=== PATIENT | male | born 1985 | race Caucasian/White ===

== ENCOUNTER 2020-02-08 15:22 | Emergency (ER) | payer MEDICAID, SELFPAY ==
[2020-02-08 15:28] VITALS: BP 153/95; PULSE 62; RESP 19; TEMP 36.6; O2SAT 100; BMI 28.0
--- NOTE | 2020-02-08 15:34 | XR_ITS ---
WS: [id number] LEFT ANKLE: 3 VIEW(S) TECHNIQUE: AP, oblique(s) and lateral. HISTORY: trauma; get distal tib/fib please COMPARISON: None available. Normal anatomic alignment with no fracture or dislocation. Large joint effusion. Most significant distention of the anterior recess. No significant degenerative changes at the joint spaces. No soft tissue abnormality. XR/XR ankle LT min 3V* [id number] IMPRESSION: 1. Large joint effusion. No fracture identified.
--- NOTE | 2020-02-08 16:50 | W.ED.EXTPRO ---
HPI - Extremity Problem General: Chief complaint: Extremity Injury, Lower Stated complaint: left leg pain Time Seen by Provider: 02/08/20 16:48 History of Present Illness: HPI Narrative: Stiven is a very nice 34-year-old male who comes in with an ankle injury. He states he injured it while working outside. He denies any numbness or weakness of his foot. He denies any other injuries. 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 History of recent travel: No Physical Exam Const: COMMON NORMALS: no apparent distress, oriented x3, no limitations, healthy appearing and well nourished EXAM LIMITATIONS: no altered mental status GENERAL APPEARANCE: cooperative, well kempt and well developed ORIENTATION/CONSCIOUSNESS: Yes awake HENMT: COMMON NORMALS: normocephalic, head/scalp atraumatic, hearing grossly normal bilaterally, external ears normal, EAC's normal, external nose normal and moist oral mucous membranes HEAD & SCALP: normal to inspection, normocephalic and atraumatic FACE & SINUS: normal facial exam and face symmetric NOSE: external nose normal and nares normal EXTERNAL EAR: Yes external ears normal EXTERNAL AUDITORY CANAL: EAC's normal MOUTH: oral and palatal mucosa normal and tongue normal Eye: COMMON NORMALS: PERRL, EOMs intact bilaterally, conjunctivae normal and no scleral icterus GENERAL EYE: normal appearance of both eyes and normal light reflex CONJUNCTIVA: Yes conjunctivae normal SCLERA: sclerae normal CORNEA: Yes corneas normal PUPIL: Yes PERRL DIRECT OPHTHALMOSCOPY: Yes normal light reflex Neck/C-Spine: COMMON NORMALS: full ROM, no lymphadenopathy, supple, no meningeal signs and no JVD GENERAL: Yes normal visual inspection and Yes trachea midline CERVICAL SPINE: Yes cervical ROM normal Chest: COMMONS NORMALS: inspection of chest normal and palpation of chest normal Resp: COMMON NORMALS: normal respiratory effort, no retractions, no use of accessory muscles and clear to auscultation bilaterally EFFORT & INSPECTION: Yes able to speak in complete sentences AUSCULTATION: clear to auscultation bilaterally Cardio: COMMON NORMALS: no JVD, regular rate, regular rhythm, S1 normal heart sound, S2 normal heart sound, no gallops, no clicks, no murmurs and no rub JUGULAR VENOUS DISTENTION: no JVD RATE: regular rate RHYTHM: regular rhythm HEART SOUNDS: S1 normal and S2 normal GI: COMMON NORMALS: soft to palpation, non-tender, no hepatosplenomegaly and no masses INSPECTION: Yes normal to inspection PALPATION: Yes soft and Yes no hepatosplenomegaly : COMMON NORMALS: Yes no CVA tenderness BLADDER/KIDNEY EXAM: Yes no CVA tenderness Back/Pelvis: COMMON NORMALS: no CVA tenderness, thoracic and lumbar spine normal to inspection, no thoracic nor lumbar tenderness and thoraco-lumbar ROM normal Extremity: COMMON NORMALS: normal capillary refill, no joint enlargement, no clubbing, cyanosis or edema and no calf tenderness OTHER: Left ankle with mild tenderness to palpation over the medial and lateral malleolus. Neurovascular intact distal. Minimal swelling. No ecchymosis. Neuro: COMMON NORMALS: oriented x3, CN's II-XII intact bilaterally, moves all extremities, no focal motor deficits and no sensory deficits noted MENINGEAL SIGNS: Yes no meningeal signs Psych: COMMON NORMALS: mental status grossly normal, thought process normal, cooperative, affect normal, speech normal and activity/motor behavior normal APPEARANCE: Yes well kempt SPEECH: Yes normal speech THOUGHT PROCESS: normal thought process Skin: COMMON NORMALS: no rashes or lesions noted, skin turgor normal, no jaundice, no petechiae and no mottling GENERAL SKIN EXAM: no rashes or lesions noted and turgor normal Course Vital Signs: Vital signs: Vital Signs Temperature 97.8 F 02/08/20 15:28 Pulse Rate 62 02/08/20 15:28 Respiratory Rate 19 H 02/08/20 15:28 Blood Pressure 153/95 02/08/20 15:28 Pulse Oximetry 100 02/08/20 15:28 MDM - Extremity (Nontraumatic) MDM Narrative: Medical decision making narrative: Patient's x-ray reveals no evidence of fracture although there is a joint effusion. I will place him in a splint and have him use crutches as needed. He agrees to follow-up with the orthopedic doctor if his pain persists. Imaging Data^: Xray Ortho: My impression: Right ankle -no acute fracture. Joint effusion noted. Discharge Plan Discharge Patient Disposition: Home, Self-Care Clinical Impression: Ankle sprain Qualifiers: Encounter type: initial encounter Involved ligament of ankle: unspecified ligament Laterality: right Qualified Code(s): S93.401A - Sprain of unspecified ligament of right ankle, initial encounter Condition: Stable Prescriptions: No Action diazepam [Valium] 10 mg tablet 10 mg PO ONCE Qty: 1 RF: 0 colchicine 0.6 mg capsule 0.6 mg PO DAILY RF: 0 Discharge Orders: Discharge Order (Routine); Ordered 02/08/20 Ordered By: Libby Mabry Referrals: Harley Huntley MD [Physician] - 1-3 days Osbaldo Smith MD [Primary Care Provider] - Discharge Diet: Advance as tolerated Discharge Activity: Use walker/crutches as instructed Patient Instructions: Ankle Sprain (ED) Activity Restrictions/Additional Instructions: Please return to the ER immediately for any of the signs or symptoms listed on your discharge instruction sheets, worsening/changing of your symptoms, you are not getting better as quickly as expected, or for ANY other cause or concerns. Use your splint and crutches and only bear weight as tolerated on your ankle. Return to the ER for increased pain, weakness or numbness of your foot. Be certain to follow-up with orthopedic doctor for definitive management and care. Use [id number] Tylenol and Motrin for pain. Coding Level of Care Code ED Environmental Coordinator for [facility]
[2020-02-08 17:02] VITALS: BP 147/95; PULSE 52; RESP 18; O2SAT 97
--- NOTE | 2020-02-09 10:39 | DCPLANNER ---
manager market had message to schedule a follow up appointment for patient with ortho. manager market called the ortho clinic, spoke with Francesca, skilled nursing case manager gave clinic patients information. manager market was told that patients information would be printed and reviewed. Clinic will call skilled nursing case manager and patient with appointment information.
--- NOTE | 2020-02-10 12:34 | DCPLANNER ---
Patient has a follow up appointment scheduled for Thursday, February 13, [address] at 8:[address] Hamilton. Clinic will call patient with appointment information.
--- NOTE | 2020-03-08 15:56 | DCPLANNER ---
Patient did attend appointment scheduled for 02.13.20 with ortho.
== END 2020-02-08 17:02 | disposition home or self-care (01) ==
PROVIDERS: Emergency Provider Emergency Medicine; PCP Family Medicine
DX: S93.402A Sprain of unspecified ligament of left ankle, initial encounter (principal); X58.XXXA Exposure to other specified factors, initial encounter
CPT/HCPCS: 12345; 29515; 73610; 99281; 99283; E0114

== ENCOUNTER 2021-03-03 16:10 | Observation (INO) | payer MEDICAID, SELFPAY ==
[2021-03-03 16:30] VITALS: BP 131/76; PULSE 36; RESP 18; TEMP 36.6; O2SAT 100; BMI 30.4
--- NOTE | 2021-03-03 16:48 | XRR_ITS ---
PROCEDURE INFORMATION: Exam: XR Chest Exam date and time: 03/03/2021 4:55 PM Age: 35 years old Clinical indication: Other: Low heart rate; Additional info: Bradycardia TECHNIQUE: Imaging protocol: XR of the chest. Views: 1 view. COMPARISON: No relevant prior studies available. FINDINGS: Lungs: Unremarkable. No consolidation. Pleural spaces: Unremarkable. No pleural effusion. No pneumothorax. Heart/Mediastinum: Unremarkable. No cardiomegaly. Bones/joints: Unremarkable. XR/XR chest 1V portable [id number] IMPRESSION: No acute findings.
--- NOTE | 2021-03-03 16:48 | ECG_ITS ---
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 Measurements Intervals [place] Rate: 40 P: 25 IA: 169 QRS: -10 QRSD: 111 T: 24 QT: 425 QTc: 348 Interpretive Statements SINUS BRADYCARDIA MODERATE INTRAVENTRICULAR CONDUCTION DELAY [110+ ms QRS DURATION] CRITICAL TEST RESULT No previous ECG available for comparison Electronically Signed On 03-05-2021 9:34:25 CDT by Anayeli Pineda M.D. [id number]
[2021-03-03 16:49] VITALS: O2SAT 98
[2021-03-03 17:01] LABS: Basophils # 0.1 10^3/uL (0.0-0.1); Basophils % 0.5 %; Eosinophils # 0.2 10^3/uL (0.0-0.8); Eosinophils % 1.5 %; Hematocrit 48.7 % (42.0-52.0); Hemoglobin 16.6 g/dL (11.7-16.6); Lymphocytes # 3.3 10^3/uL (0.8-4.8); Lymphocytes % 27.2 %; Mean Corpuscular HGB Conc 34.1 g/dL (30.0-36.0); Mean Corpuscular Hemoglobin 29.1 pg (28.0-34.0); Mean Corpuscular Volume 85.4 fL (80-94); Mean Platelet Volume 10.8 fL (7.4-10.4); Monocytes # 0.9 10^3/uL (0.2-0.9); Monocytes % 7.5 %; Neutrophils # 7.66 10^3/uL (1.8-7.7); Neutrophils % 63.1 %; Nucleated Red Blood Cells % 0 %; Platelet Count 284 10^3/cmm (130-400); Red Cell Distribution Width 13.1 % (12.1-15.1); White Blood Count 12.2 10^3/uL (4.0-10.0)
--- NOTE | 2021-03-03 17:01 | ED_ITS ---
HPI - Arrhythmia/Palpitations General: Chief Complaint: Arrhythmia/Palpitations Stated Complaint: HEART ISSUES Time Seen by Provider: 03/03/21 16:34 History of Present Illness: HPI narrative: This is a 35-year-old male who is presenting with bradycardia and chest pain. Patient was walking into spiritism tonight he started to have some sharp left-sided chest pain like a rib had been out and then he got an alert on his watch that his heart rate was 32. He had some mild shortness of breath and nausea with this he got into the spiritism that down drink some water and his heart rate improved a little bit but still remained in the 30s. So they presented to the emergency room. He does have some mild chest discomfort but it worsens when his heart rate gets lower. He has noticed his heart rates been in the 30s a couple of times recently but he had just planned on following up with it but he is not had chest discomfort like he has had tonight. 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 He is not a smoker but he chews tobacco no significant family history denies any history of blood pressure issues and is never seen his heart rate be so low denies taking any beta-blockers denies drug use states he has been more fatigued patient does agree to that as well she said last night he seemed more irritable than usual he does admit to having less energy Review of Systems Narrative: General: denies fatigue, fever or chills HEENT: denies ear pain, denies nasal congestion, denies vision changes, denies sore throat Neck: denies masses or pain Resp: denies cough, denies shortness of breath, denies pleuritic pain Cardio: see HPI, denies edema GI: denies abdominal pain, denies N/V/D, denies black/tarry or bloody stools : denies hematuria, denies dysuria Neuro: denies headache, denies dizziness, denies motor or sensory changes Musculoskeletal: denies pain, denies swelling Skin: denies rashes Psych: denies SI or HI Endocrine: denies thyroid symptoms, denies lymphadenopathy all over ROS reviewed and patient denies PFSH ED PFSH: Medical History (Updated 03/03/21 @ 18:30 by Iman Vail DO) Gout Visit for vasectomy evaluation Family History Father Non Hodgkin's lymphoma Social History Smoking and tobacco status: never smoked Alcohol intake: current Alcohol intake frequency: holidays/special occasions only Adopted: No Caregiver/support person: No Lives independently: No Household members: spouse Marital status: Number of children: 3 Current occupational status: employed 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 History of recent travel: No Physical Exam Narrative: EXAM NARRATIVE: General: a/o/3, no distress Head: atraumatic HEENT: normal eyes, normal conjunctiva, normal hearing, normal external nose, normal mouth, mucous membranes moist Neck: FROM, trachea midline Chest: normal expansion, no gross deformities Resp: normal speech, no retractions, no accessory muscle use, CTA bilaterally Cardio: regular bradycardic, increased heart sounds and pounding but slow and no murmur, no peripheral edema, normal peripheral pulses present but gabriele GI: soft, flat non tender, no guarding normal BS : deferred Musculoskeletal: FROM, no pain or gross deformities Neuro: a/o appropriate for age, no gross motor or sensory deficitys, CN II-XII grossly intact, normal coordination, normal speech Skin: no rashes Psych: cooperative, normal mood and effect Course Vital Signs: Vital signs: Vital Signs Temperature 97.8 F 03/03/21 16:30 Pulse Rate 36 L 03/03/21 16:30 Respiratory Rate 18 03/03/21 16:30 Blood Pressure 131/76 03/03/21 16:30 Pulse Oximetry 98 03/03/21 16:49 MDM - Arrhythmia/Palpitations MDM Narrative: Medical decision making narrative: Patient definitely had bradycardia here in the emergency department his monitor showed sinus laura ycardia anywhere from 30 to and the highest I thought was 62 however I would say majority of the time it was in the 30s and about 40. There were definitely P waves he did not have any further chest discomfort. 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 He and his are agreeable. I spoke to cardiology Dr. Valentine who agreed to consult on the patient. Spoke to the hospitalist at [facility] who would like me to wait and speak to the night doctor so I will speak to the night hospitalist for admission. Lab Data: Labs: Lab Results 03/03/21 03/03/21 03/03/21 Range/Units 16:40 16:40 16:40 WBC 12.2 H (4.0-10.0) 10^3/ uL RBC 5.70 H (4.1-5.3) 10^6/u L Hgb 16.6 (11.7-16.6) g/dL Hct 48.7 (42.0-52.0) % MCV 85.4 (80-94) fL MCH 29.1 (28.0-34.0) pg MCHC 34.1 (30.0-36.0) g/dL RDW 13.1 (12.1-15.1) % Plt Count 284 (130-400) 10^3/c mm MPV 10.8 H (7.4-10.4) fL Neut % (Auto) 63.1 % Lymph % (Auto) 27.2 % Trimble % (Auto) 7.5 % Eos % (Auto) 1.5 % Baso % (Auto) 0.5 % Neut # (Auto) 7.66 (1.8-7.7) 10^3/u L Lymph # (Auto) 3.3 (0.8-4.8) 10^3/u L Trimble # (Auto) 0.9 (0.2-0.9) 10^3/u L Eos # (Auto) 0.2 (0.0-0.8) 10^3/u L Baso # (Auto) 0.1 (0.0-0.1) 10^3/u L Nucleated RBC % (a uto) 0 % Nucleated RBCs # 0.0 /100WBC Sodium 139 (136-145) mmol/L Potassium 4.3 (3.5-5.1) mmol/L Chloride 101 (98-107) mmol/L Carbon Dioxide 29 (22-29) mmol/L Anion Gap 13.3 (5-19) BUN 21 H (6-20) mg/dL Creatinine 1.1 (0.7-1.2) mg/dL GFR Calculation 77.1 L (90-130) mL/min Glucose 81 (65-115) mg/dL Calculated Osmolal ity 290 (285-295) mOsm/k g Calcium 9.8 (8.5-10.5) mg/dL Total Bilirubin 0.6 (0.15-1.2) mg/dL AST 20 (0-40) U/L ALT 28 (0-41) U/L Alkaline Phosphata se 72 (40-130) IU/L Troponin T Baselin e 7 (0-15) ng/L Total Protein 7.1 (6.6-8.7) g/dL Albumin 4.9 (3.5-5.2) g/dL Globulin 2.2 (1.3-4.6) g/dL Discharge Plan Discharge Patient Disposition: Placed in Observation Clinical Impression: Symptomatic sinus bradycardia Coding Level of Care Code ED Senior Hr Business Partner for [facility]
[2021-03-03 17:27] LABS: Alanine Aminotransferase 28 U/L (0-41); Albumin Level 4.9 g/dL (3.5-5.2); Alkaline Phosphatase 72 IU/L (40-130); Anion Gap 13.3 (5-19); Aspartate Amino Transferase 20 U/L (0-40); Blood Urea Nitrogen 21 mg/dL (6-20); Calcium 9.8 mg/dL (8.5-10.5); Carbon Dioxide 29 mmol/L (22-29); Chloride 101 mmol/L (98-107); Globulin 2.2 g/dL (1.3-4.6); Glomerular Filtration Rate 77.1 mL/min (90-130); Glucose 81 mg/dL (65-115); Osmolality Calculated 290 mOsm/kg (285-295); Potassium 4.3 mmol/L (3.5-5.1); Sodium 139 mmol/L (136-145); Total Bilirubin 0.6 mg/dL (0.15-1.2); Total Protein 7.1 g/dL (6.6-8.7)
[2021-03-03 17:28] LABS: Troponin(5th) Baseline 7 ng/L (0-15)
[2021-03-03 19:17] LABS: Troponin 5 2HR 7.21 ng/L (0-15); Troponin 5 2HR Delta 0.21 ABS# (0-10)
--- NOTE | 2021-03-03 19:32 | PM.HP ---
Providers/Chief Complaint Chief Complaint: HEART ISSUES History of Present Illness ALENA RUST is a 35 year old male with no significant past medical history presented today for chief complaint of chest discomfort and nausea. 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 Patient is stating that he went to synagogue today and all of a sudden he started experiencing nausea, he could feel pressure-like sensation substernally, he asked for a glass of water, at that time pulse was checked which was 32, he is describing his chest discomfort as pressure-like sensation which last for about 10 minutes and then decreased in intensity but never completely subsided, no episodes of emesis, shortness of breath, diaphoresis or syncope. He was brought to the ER for further evaluation. Of note, patient's is in the room who is endorsing that Alena gets tick bites on daily basis, 2 days ago a tick was pulled from his left leg which was embedded in his skin. He has not noticed any specific rash such as bull's-eye rash. No fever or joint pains Diagnostics in the ER revealed blood pressure 126/73, heart rate 36, EKG showing sinus bradycardia without ischemic or infarctive changes QTC normal, mild leukocytosis hemoglobin stable TSH normal mag normal he does not take any AV keny blocking agents, no active signs of coronary ischemia, his last alcoholic drink was 3 beers 2 nights ago, chest x-ray unremarkable, drug screen unremarkable Review of Systems Const: Denies: fever(s) Eyes: Denies: change in vision ENMT: Denies: throat pain Card: Reports: chest pain Resp: Denies: dyspnea GI: Reports: nausea : Denies: flank pain Musc: Denies: neck pain Skin/Breast: Denies: rash Neuro: Denies: headache(s) Psych: Denies: anxiety Endo: Denies: polyuria Dc/Lymph: Denies: easy bruising All/Imm: Denies: urticaria Medications/Allergies Home Medications Medication Instructions Recorded Confirmed Last Taken Type Tums Anti-Gas/Antacid 2 tab PO PRN 03/03/21 03/03/21 03/03/21 13:45 History ibuprofen 400 mg PO PRN 03/03/21 03/03/21 Unknown History Allergies Allergy/AdvReac Type Severity Reaction Status Date / Time No Known Allergies Allergy Verified 03/03/21 16:58 PFSH Acute PFSH: Medical History Gout Tick bite Visit for vasectomy evaluation Surgical History H/O vasectomy Family History Father Non Hodgkin's lymphoma Social History Smoking and tobacco status: never smoked Alcohol intake: current Alcohol intake frequency: holidays/special occasions only Adopted: No Caregiver/support person: No Lives independently: No Household members: spouse Marital status: Number of children: 3 Current occupational status: employed 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 History of recent travel: No Vitals/I&O/Wt Last Vital Signs Temp 97.8 F 03/03/21 16:30 Pulse 36 L 03/03/21 16:30 Resp 18 03/03/21 16:30 BP 131/76 03/03/21 16:30 Pulse Ox 98 03/03/21 16:49 Weight last 48 hrs Weight 113.398 kg Physical Exam Narrative: EXAM NARRATIVE: Young healthy appearing male, appears stated age, Hemodynamically stable, heart rate 36-50bpm Complaining of heartburn S1, S2 sinus bradycardia no murmur appreciated no signs of heart failure or signs of dehydration Tick bite below left knee no bull's-eye rash No signs of cellulitis Abdomen soft Bilateral breath sounds without audible stridor or wheezing Appropriate mood and affect No neurological deficits EOMI, PERRLA No joint swelling Data : 03/03/21 16:40 03/03/21 16:40 A&P Assessment and plan (1) Symptomatic sinus bradycardia: Symptomatic sinus bradycardia No family history of sudden cardiac ,, does not take any AV keny blocking agents, no history of thyroid disease, no history of autoimmune disease, no signs of coronary ischemia, drug tox negative Hemodynamically stable with normal thyroid heating worker on cardiac floor with telemetry, likely will need Holter monitoring at the time of discharge, my suspicion is high for tick bite related bradycardia, considering leukocytosis I will give him 1 dose of ceftriaxone for now, kindly reevaluate if he would benefit from antibiotics for longer duration, on skin exam do not see any bull's-eye rash Will request echo in the morning, cardiology consulted We will give him GI cocktail for heartburn Symptoms of bradycardia resolved in the ER, would hold off on using atropine for now, rule out reversible causes of bradycardia, would recommend 6-minute walk test to see if his symptoms reappear or not, 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 40mins Coding Level of Care Code Acute Laboratory Scientist for [facility] Diagnoses Symptomatic sinus bradycardia R00.1
[2021-03-03 19:34] LABS: Amphetamines Screen Urine Negative (Negative); Barbiturates Screen Urine Negative (Negative); Benzodiazepines Screen Urine Negative (Negative); Cocaine Screen Urine Negative (Negative); Opiate Screen Urine Negative (Negative); PCP Screen Urine Negative (Negative); THC Screen Urine Negative (Negative)
[2021-03-03 19:48] VITALS: BP 126/73; RESP 16; O2SAT 96
[2021-03-03 19:59] LABS: Free T4 Free Thyroxine 1.03 ng/dL (0.82-1.77)
[2021-03-03 20:01] LABS: Thyroid Stimulating Hormone 0.37 uIU/mL (0.27-4.20)
[2021-03-03 20:57] VITALS: BP 130/80; PULSE 39; RESP 16; O2SAT 96
[2021-03-03 21:09] VITALS: BP 150/85; PULSE 42; RESP 18; TEMP 36.6; O2SAT 99
[2021-03-03] MEDS: lidocaine 2% viscous 15 ML, aluminum-mag hydrox-simethicon 30 ML, sucralfate oral liq 1 GM PO (21:49)
[2021-03-03] MEDS: cefTRIAXone 1,000 MG in sodium chloride 0.9% (plus) 50 ML 100 MG IV (21:56)
[2021-03-03 22:00] VITALS: PULSE 44
[2021-03-04] VITALS (8 sets, daily range): BP systolic 122–125; BP diastolic 72; PULSE 39–52; RESP 16–18; TEMP 36.5–36.9; O2SAT 96–98
[2021-03-04 00:39] LABS: Troponin 5 6HR 6.11 ng/L (0-15)
[2021-03-04 00:45] LABS: Troponin 5 6HR Delta -0.89 ng/L (0-12)
--- NOTE | 2021-03-04 05:00 | USCV_ITS ---
ALENA RUST Age: 35 Gender: M : 1985 Exam Date: 03/04/2021 06:30 Ordering Phys: Kristel Kat MD Technologist: OSMIN [place] [facility] [place]ication: BRADYCARDIA BP: 122 / 72 HR: 38 Rhythm: Sinus Technical Quality: Good MEASUREMENTS (Male / Female) Normal Values 2D ECHO LV Diastolic Diameter PLAX 5.5 cm 4.2 - 5.9 / 3.9 - 5.3 cm LV Systolic Diameter PLAX 3.8 cm IVS Diastolic Thickness 1.1 cm 0.6 - 1.0 / 0.6 - 0.9 cm IVS Systolic Thickness 1.6 cm LVPW Diastolic Thickness 0.9 cm 0.6 - 1.0 / 0.6 - 0.9 cm LVPW Systolic Thickness 1.6 cm LVOT Diameter 2.0 cm LV Ejection Fraction 2D Teich 58.5 % LV Ejection Fraction MOD 2C 72.0 % LV Ejection Fraction 2C AL 70.4 % LA Diameter 2.9 cm LA Width 3.0 cm LA Height 4.5 cm RA Width 2.8 cm RA Height 4.3 cm Aorta at Sinotubular Diameter 2.7 cm M-MODE LV Diastolic Diameter MM 5.7 cm 4.2 - 5.9 / 3.9 - 5.3 cm LV Systolic Diameter MM 4.0 cm LV Ejection Fraction MM Teich 56.8 % IVS Diastolic Thickness MM 1.1 cm 0.6 - 1.0 / 0.6 - 0.9 cm IVS Systolic Thickness MM 1.4 cm LVPW Diastolic Thickness MM 0.9 cm 0.6 - 1.0 / 0.6 - 0.9 cm LVPW Systolic Thickness MM 1.3 cm Aortic Annulus Diameter 3.4 cm LA Ao Ratio MM 0.9 MV E Point Septal Separation 0.8 cm DOPPLER AV Peak Velocity 126.0 cm/s LVOT Peak Velocity 86.0 cm/s AV Area Cont Eq vti 2.2 cm squared AV Area Cont Eq pk 2.1 cm squared MV Area PHT 4.1 cm squared MV E' Velocity 41.5 cm/s Mitral E to MV E' Ratio 5.0 Mitral E to LV E' Lateral Ratio 4.8 Mitral E to LV E' Septal Ratio 5.2 TR Peak Velocity 262.8 cm/s TR Peak Gradient 27.6 mmHg TV Peak E Velocity 61.0 cm/s Right Atrial Pressure 3.0 mmHg Pulmonary Artery Systolic Pressu 30.6 mmHg PV Peak Velocity 86.0 cm/s RV Acceleration Time 0.1 s RV Ejection Time 0.4 s RV AcT/ET 0.2 FINDINGS Left Ventricle Normal left ventricular size, systolic function and wall thickness, with no regional wall motion abnormalities. Left ventricular ejection fraction is estimated at 55-60 %. Normal diastolic function. Right Ventricle Normal right ventricular size and systolic function. Right ventricular systolic pressure 30.6 mmHg. Right Atrium Normal right atrial size. Right atrial pressure estimated at 3 mmHg. Left Atrium Normal left atrial size. Mitral Valve Structurally normal mitral valve. No mitral valve stenosis. Trace mitral valve regurgitation. Aortic Valve Structurally normal trileaflet aortic valve. No aortic valve stenosis. No aortic valve regurgitation. Tricuspid Valve Structurally normal tricuspid valve. No tricuspid valve stenosis. Trace tricuspid valve regurgitation. Pulmonic Valve Structurally normal pulmonic valve. No pulmonary valve stenosis. Trace pulmonary valve regurgitation. Pericardium No pericardial effusion. Aorta Normal size aortic root and proximal ascending aorta. Normal- sized inferior vena cava CONCLUSIONS 1. Normal left ventricular size, systolic function and wall thickness, with no regional wall motion abnormalities. Left ventricular ejection fraction is estimated at 55-60 %. Normal diastolic function. 2. Normal right ventricular size and systolic function. 3. No significant valvular abnormality. 4. No pericardial effusion. 5. No prior similar studies to compare. Anayeli Pineda MD (Electronically Signed) Final Date: 04 Mar 2021 12:34 S
--- NOTE | 2021-03-04 08:00 | PC.NURSE ---
Pt presents lying in bed resting with eyes open talking to staff. Pt A&Ox4, Resp even and non-labored no distress noted . IV patent no redness or swelling noted. Pt had no c/o pain or discomfort at the present time. No needs voiced. Call light in reach. Will cont to monitor.
--- NOTE | 2021-03-04 09:30 | PC.RESP ---
SMOKING CESSATION INFORMATION SENT TO PATIENT.
--- NOTE | 2021-03-04 10:26 | PM.CONSULT ---
Providers/Reason For Consult Consulting Physican/Specialty*: Dr. Pineda, cardiology Reason for Consult*: Bradycardia and chest pain Attending Physician: Haile Etienne History of Present Illness History of Present Illness ALENA RUST is a 35 year old male with no prior medical history. 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 He also complains of intermittent episodes of heartburns for which he used Tums [id number]. Thursday night he drank 3 beers which is unusual for him but he felt okay during the night and in the morning. On Thursday while in [facility] he had heartburn and also noticed some pressure-like sensation in his chest he drank couple of glasses of water without any significant improvement in his symptoms. This lasted for about 10 minutes and he got pretty nauseous as well. Denies any emesis diaphoresis lightheadedness or dizziness. He has been complaining of fatigue for some time. He noticed his heart rate was in 30s they got back home around 2 PM and blood pressure at the time was okay. He decided to come to the hospital for further evaluation as he continued to feel weak and tired after that. He also had a tick bite about 3 weeks back on his left leg. No associated rash noted. His was at bedside at the time of examination. They have 3 kids the youngest being 2-year-old. EKG on arrival showed sinus bradycardia at 40 bpm, normal axis. Interventricular conduction delay. Nonspecific T wave inversion in lead III. QRS duration 111 ms. W[place] 169, QT/QTc 425/348 ms. Baseline troponin T of 7 at 2 hours 7.2 and at 6 hours of 6. TSH 0.37. U tox was negative. Review of Systems General: Reports: 10 or more systems reviewed and unremarkable except in HPI and below Const: Reports: fatigue and snoring; Denies: fever(s) Eyes: Denies: change in vision ENMT: Denies: throat pain Card: Reports: chest pain; Denies: palpitations, irregular heart rhythm, lightheadedness, syncope or pre-syncope Resp: Denies: dyspnea, productive cough or non-productive cough GI: Reports: nausea; Denies: hematemesis, hematochezia or melena : Denies: flank pain or hematuria Musc: Denies: neck pain Skin/Breast: Denies: rash Neuro: Denies: headache(s) Psych: Reports: sleeping less; Denies: anxiety Endo: Denies: polyuria Dc/Lymph: Denies: easy bruising All/Imm: Denies: urticaria Meds/Allergies Home Medications and Allergies Home Medications Medication Instructions Recorded Confirmed Last Taken Type Tums Anti-Gas/Antacid 2 tab PO PRN 03/03/21 03/03/21 03/03/21 13:45 History ibuprofen 400 mg PO PRN 03/03/21 03/03/21 Unknown History pantoprazole [Protonix] 40 mg PO DAILY 42 Days #42 tab 03/04/21 Unknown Rx Allergies Allergy/AdvReac Type Severity Reaction Status Date / Time No Known Allergies Allergy Verified 03/03/21 16:58 PFSH Acute PFSH: Medical History (Updated 03/04/21 @ 17:27 by Anayeli Pineda MD) Gout Tick bite Visit for vasectomy evaluation Surgical History H/O vasectomy Family History Father Non Hodgkin's lymphoma Social History Smoking and tobacco status: never smoked Alcohol intake: current Alcohol intake frequency: holidays/special occasions only Adopted: No Caregiver/support person: No Lives independently: No Household members: spouse Marital status: Number of children: 3 Current occupational status: employed 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 Pupils equal round reactive to light. No pallor or icterus. NECK: central trachea, No JVD. No carotid bruit. CARDIOVASCULAR SYSTEM: S1-S2 regular. No S3 or S4 present. No murmur rubs or gallops. RESPIRATORY SYSTEM: Chest clear to auscultation. No wheezes rhonchi or rubs heard. No use of accessory muscles. ABDOMEN: Soft, nontender and nondistended. Normal bowel sounds present. EXTREMITIES: No cyanosis or clubbing. No edema. No signs of chronic venous insufficiency. 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 No focal neurological deficits. SKIN: Normal turgor and temperature. No breakdown, rash or nail changes noted. PSYCH: Normal insight and judgment. Data Imaging^: Echo: I personally reviewed and interpreted this imaging study as follows: My impression: Transthoracic echocardiogram 04 Mar 2021 CONCLUSIONS 1. Normal left ventricular size, systolic function and wall thickness, with no regional wall motion abnormalities. Left ventricular ejection fraction is estimated at 55-60 %. Normal diastolic function. 2. Normal right ventricular size and systolic function. 3. No significant valvular abnormality. 4. No pericardial effusion. 5. No prior similar studies to compare. A&P Assessment and plan (1) Chest pain: Chest pain improved with GI cocktail. No EKG changes or symptoms suggestive of pericarditis. -Likely in setting of gastroesophageal reflux disease. No EKG suggest changes suggestive of ischemia. -Recommend starting on PPI on discharge. Status: Acute Qualifiers: Chest pain type: unspecified Qualified Code(s): R07.9 - Chest pain, unspecified (2) Bradycardia: Sinus bradycardia on arrival with heart rate on telemetry in mid 30s and on EKG in 40s. -Heart rate lowest early in the morning that M increased to high 60s to 70s at the time of evaluation. -Bradycardia yesterday probably made worse by nausea. Heart rate improved with ambulation. -Bradycardia mostly at night and environmental remediation consultant hours with symptoms of snoring and fatigue. He would benefit from outpatient sleep study. -Normal LV function on echo. -2-week event monitor on discharge. -Stable to be discharged home from cardiac standpoint. -Follow-up with me in heart care services in 3 to 4 weeks. Status: Acute (3) Sleep apnea: Status: Acute Qualifiers: Sleep apnea type: unspecified type Qualified Code(s): G47.30 - Sleep apnea, unspecified (4) Tick bite: Status: Acute Additional A&P Information Mild leukocytosis Consult Attestations Time Spent in Patient Care: Greater than 35 minutes (>than 50% of time spent in counselling and/or direct pt care on unit). Coding Level of Care Code Acute Director [facility] for g Fwd Diagnoses Chest pain R07.9 Chest pain type: unspecified Bradycardia R00.1 Sleep apnea G47.30 Sleep apnea type: unspecified type Tick bite W57.XXXA
--- NOTE | 2021-03-04 13:32 | P.DS_ITS ---
Discharge Providers Date of Admission: 03/03/21 19:26 Date of Discharge: March 04, 2021 Attending Provider at Admission: Kristel Kat MD Attending Provider at Discharge: Haile Etienne Diagnoses at Discharge Discharge Diagnosis (1) Symptomatic sinus bradycardia: Status: Acute Reason for Visit Reason for Visit: HEART ISSUES Hospital Course Hospital Course Pleasant 35-year-old gentleman without much significant medical history was placed in observation for assessment due to complaints of chest discomfort, n ausea, as well as noted bradycardia, pulse rate down as low as 30s. This was reported accompanied by pressure-like sensation. During the assessment here troponin EKG series were completed, not suggestive of acute UT. Thyroid function was normal. Electrolytes within normal limits. He was reporting perhaps there was some improvement in his symptoms when sitting forward, although otherwise studies were not suggestive of pericarditis. No suggestion of myocarditis noted on echocardiogram. No pericardial effusion seen. We discussed his low possibility, although this appears to be less likely. We also discussed possibility of tickborne illness, and he has had takes removed from him he states about 3 weeks ago, although reported also perhaps several days ago, however, without any rash, no fever, has no transaminitis, no changes in platelet level, with normal sodium, no other suggestions of tickborne illness. As discussed with him and his we did request a tick panel. Due to minimal elevation of white count, 12.2, he received 1 dose of Rocephin on presentation, but antibiotics were not continued due to otherwise lack of suggestion of infection. He is cautioned to stay vigilant, however, and in case of any fever, any other suspicious symptoms to seek medical attention without delay. He was assessed by cardiology. He is not on any keny blocking medications. His rhythm appears to be sinus bradycardia. As noted echocardiogram is found normal. Heart rates coming down into 40s, while sleeping down as low as mid 30s, but is not symptomatic. He is asked to ambulate under monitoring, but otherwise he may discharge to follow-up with cardiology in office, but with 2- week heart monitor. Due to concern of symptoms of sleep apnea, he is also referred for a sleep study. Physical Exam Const: COMMON NORMALS: no acute distress and patient oriented x3 HENMT: COMMON NORMALS: oropharynx normal Neck/C-Spine: COMMON NORMALS: no JVD Resp: COMMON NORMALS: normal respiratory effort and clear to auscultation bilaterally AUSCULTATION: clear to auscultation bilaterally Cardio: COMMON NORMALS: no JVD, regular rhythm, S1 normal heart sound present, S2 normal heart sound present and No murmurs present (Cardio) RATE: bradycardic RHYTHM: regular rhythm HEART SOUNDS: S1 normal heart sound present and S2 normal heart sound present GI: COMMON NORMALS: Normal to inspection, nondistended, normoactive bowel sounds present, Soft to palpation and non-tender PALPATION: Yes Soft to palpation Extremity: COMMON NORMALS: no joint enlargement and no pedal edema Neuro: COMMON NORMALS: patient oriented x3 and moves all extremities Skin: COMMON NORMALS: no rashes or lesions noted GENERAL SKIN EXAM: no rashes or lesions noted Discharge Data Data Completed and Pending: Completed Studies During Hospitalization Category Date Time Status XR chest 1V beti ble [id number] Stat Exams 03/03/21 16:48 Completed CV echo complete* [id number] Routine Ultrasound 03/04/21 05:00 Completed Pending at discharge Category Date Time Status Tick Panel Routin e Lab 03/04/21 09:12 Received Labs from last 24 hours 03/03/21 03/03/21 03/03/21 23:16 19:15 18:45 WBC RBC Hgb Hct MCV MCH MCHC RDW Plt Count MPV Neut % (Auto) Lymph % (Auto) [place] % (Auto) Eos % (Auto) Baso % (Auto) Neut # (Auto) Lymph # (Auto) [place] # (Auto) Eos # (Auto) Baso # (Auto) Nucleated RBC % (a uto) Nucleated RBCs # Sodium Potassium Chloride Carbon Dioxide Anion Gap BUN Creatinine GFR Calculation Glucose Calculated Osmolal ity Calcium Magnesium Total Bilirubin AST ALT Alkaline Phosphata se Troponin T Baselin e Troponin T 120 Min hoh Delta Troponin T Troponin T Hi Sens 6Hr 6.11 Troponin T Hi Sens 6Hr Delta -0.89 L Total Protein Albumin Globulin TSH 0.37 Free T4 1.03 Urine Opiates Scre en Negative Ur Barbiturates Sc reen Negative Ur Phencyclidine S crn Negative Ur Amphetamines Sc reen Negative U Benzodiazepines Scrn Negative Urine Cocaine Scre en Negative U Marijuana (THC) Screen Negative Lyme Ab (Western B lot) E. chaffeensis IgG Ab E. chaffeensis IgM Ab E. chaffeensis Int erp E. chaffeensis Com ment Rickettsia IgG Ab Rickettsia IgM Ab 03/03/21 03/03/21 03/03/21 18:45 16:40 16:40 WBC RBC Hgb Hct MCV MCH MCHC RDW Plt Count MPV Neut % (Auto) Lymph % (Auto) [place] % (Auto) Eos % (Auto) Baso % (Auto) Neut # (Auto) Lymph # (Auto) [place] # (Auto) Eos # (Auto) Baso # (Auto) Nucleated RBC % (a uto) Nucleated RBCs # Sodium Potassium Chloride Carbon Dioxide Anion Gap BUN Creatinine GFR Calculation Glucose Calculated Osmolal ity Calcium Magnesium 2.0 Total Bilirubin AST ALT Alkaline Phosphata se Troponin T Baselin e Troponin T 120 Min hoh 7.21 Delta Troponin T 0.21 Troponin T Hi Sens 6Hr Troponin T Hi Sens 6Hr Delta Total Protein Albumin Globulin TSH Free T4 Urine Opiates Scre en Ur Barbiturates Sc reen Ur Phencyclidine S crn Ur Amphetamines Sc reen U Benzodiazepines Scrn Urine Cocaine Scre en U Marijuana (THC) Screen Lyme Ab (Western B lot) Pending E. chaffeensis IgG Ab Pending E. chaffeensis IgM Ab Pending E. chaffeensis Int erp Pending E. chaffeensis Com ment Pending Rickettsia IgG Ab Pending Rickettsia IgM Ab Pending 03/03/21 03/03/21 03/03/21 16:40 16:40 16:40 WBC 12.2 H RBC 5.70 H Hgb 16.6 Hct 48.7 MCV 85.4 MCH 29.1 MCHC 34.1 RDW 13.1 Plt Count 284 MPV 10.8 H Neut % (Auto) 63.1 Lymph % (Auto) 27.2 [place] % (Auto) 7.5 Eos % (Auto) 1.5 Baso % (Auto) 0.5 Neut # (Auto) 7.66 Lymph # (Auto) 3.3 [place] # (Auto) 0.9 Eos # (Auto) 0.2 Baso # (Auto) 0.1 Nucleated RBC % (a uto) 0 Nucleated RBCs # 0.0 Sodium 139 Potassium 4.3 Chloride 101 Carbon Dioxide 29 Anion Gap 13.3 BUN 21 H Creatinine 1.1 GFR Calculation 77.1 L Glucose 81 Calculated Osmolal ity 290 Calcium 9.8 Magnesium Total Bilirubin 0.6 AST 20 ALT 28 Alkaline Phosphata se 72 Troponin T Baselin e 7 Troponin T 120 Min hoh Delta Troponin T Troponin T Hi Sens 6Hr Troponin T Hi Sens 6Hr Delta Total Protein 7.1 Albumin 4.9 Globulin 2.2 TSH Free T4 Urine Opiates Scre en Ur Barbiturates Sc reen Ur Phencyclidine S crn Ur Amphetamines Sc reen U Benzodiazepines Scrn Urine Cocaine Scre en U Marijuana (THC) Screen Lyme Ab (Western B lot) E. chaffeensis IgG Ab E. chaffeensis IgM Ab E. chaffeensis Int erp E. chaffeensis Com ment Rickettsia IgG Ab Rickettsia IgM Ab Vitals: Last Vital Signs Temp 98.2 F 03/04/21 12:29 Pulse 45 L 03/04/21 12:29 Resp 18 03/04/21 12:29 BP 122/72 03/04/21 12:29 Pulse Ox 98 03/04/21 12:29 Discharge Plan Discharge Patient Disposition: Home Condition: Stable Prescriptions: New pantoprazole [Protonix] 40 mg tablet,delayed release (DR/EC) 40 mg PO DAILY 42 Days Qty: 42 RF: 0 Continued ibuprofen 200 mg Tablet 400 mg PO PRN RF: 0 Tums Anti-Gas/Antacid 2 tab PO PRN RF: 0 Discharge Orders: Discharge Order (Routine); Ordered 03/04/21 Ordered By: Haile Etienne Other Ambulatory Orders: CA cardiac event monitor (Routine) Timeframe: 1 Day Facility: [facility] - Location: Cardiac Diagnostic Laboratory Ordered By: Haile Etienne Sleep Study/Titration (Routine) Timeframe: 3 Days Location: None Selected Ordered By: Haile Etienne Referrals: Primary, provider [Other] - 4-7 days (Bradycardia, GERD) Guillermina Zee FNP [Nurse Practitioner] - 1 week Anayeli Pineda MD [Physician] - 2 weeks Discharge Diet: Usual diet Discharge Activity: Increase activity as tolerated Patient Instructions: Pantoprazole (By mouth), Bradycardia (GEN), Ibuprofen (By mouth) Activity Restrictions/Additional Instructions: Please monitor your pulse rate at home at least twice daily. Record values to bring to your appointment. In case you experience dizziness, lightheadedness, fainting, chest pain, fever, or any other concerning symptoms, please seek medical attention. You are started on pantoprazole due to heartburn. Please follow-up regarding this with your primary doctor. Consider that ibuprofen may contribute to heartburn/stomach inflammation (gastritis). Please have your primary doctor recheck your blood to make sure that white blood cell count elevation has resolved. Please have your primary care doctor follow-up to final results of the tick panel collected in the hospital as this will likely not be back for at least several days. Discharge Attestations Time Spent in Discharge Care*: greater than 30 min Quality Metrics Clinical Quality Measures During this hospital stay, did patient experience: None Coding Level of Care Code Acute [facility] note Diagnoses Symptomatic sinus bradycardia R00.1
--- NOTE | 2021-03-04 15:05 | PC.NURSE ---
Pt discharged home. IV removed no redness or swelling noted. Pts discharge instructions given along with prescriptions and follow up appointments. Pt had no c/o pain or discomfort at the time of discharge.
[2021-03-06 12:17] LABS: Lyme AB Screen <0.90 index
[2021-03-07 17:08] LABS: E. Chaffeensis AB IGG <1:64; E. Chaffeensis AB IGM <1:20
[2021-03-10 22:27] LABS: RMSF IGG DETECTED; RMSF IGM NOT DETECTED
== END 2021-03-04 14:54 | disposition home or self-care (01) ==
LOC: ER 18:30 → CSU 19:58
PROVIDERS: Admitting Provider Internal Medicine; Emergency Provider Emergency Medicine; Visit Provider Internal Medicine
DX: R00.1 Bradycardia, unspecified (principal); G47.30 Sleep apnea, unspecified; R07.9 Chest pain, unspecified; W57.XXXA Bitten or stung by nonvenomous insect and other nonvenomous arthropods, initial encounter
CPT/HCPCS: 71045; 80053; 80306; 83735; 84439; 84443; 84484; 85025; 86618; 86666; 86757; 93005; 93306; 96365; 99285; G0378; J0696

== ENCOUNTER 2021-04-16 20:00 | Outpatient (CLI) | payer MEDICAID, SELFPAY | END 2021-04-16 20:01 | disposition home or self-care (01) | LOC: SLEEP 04-17 09:11 | PROVIDERS: PCP Family Medicine; Visit Provider Internal Medicine | DX: G47.30 Sleep apnea, unspecified (principal); R00.1 Bradycardia, unspecified | CPT/HCPCS: 95810 ==

== ENCOUNTER 2021-06-27 12:00 | Outpatient (CLI) | payer MEDICAID, SELFPAY ==
[2021-06-27 12:18] VITALS: BMI 30.2
--- NOTE | 2021-06-27 12:19 | ECG_ITS ---
[facility] Test Date: 2021-06-27 Pat Name: Stiven Stockton Department: Room: Gender: Male Manager Hair: Marianne Joiner : 1985 Requested By: Anayeli Pineda Order Number: [id number] Le MD: Anayeli Pineda M.D. Interpretive Statements NAME OF STUDY: TREADMILL STRESS TEST INDICATION: Chest Pain Baseline blood pressure of 126/79 mm Hg, heart rate 58 beats per minute. EKG showed normal sinus rhythm, normal axis with normal ST-Ts. The patient exercised for 11 minutes 20 seconds on a standard Mao protocol. Patient attained a maximum heart rate of 167 beats per minute(89% of the maximum predicted heart rate) with a blood pressure at the peak exercise of 174/82 mm Hg. The EKG at the peak exercise revealed sinus tachycardia with no significant ST-T wave changes. Patient did not have any chest pain or any significant arrhythmis with the exercise. The study was terminated due to exertional fatigue and shortness of breath. During the recovery phase, there were no new changes. Blood pressure at the end of the recovery phase was 136/67 mm Hg with a heart rate of 94 beats per minute. CONCLUSION: 1. Normal EKG response to treadmill exercise. 2. No exercise-induced chest pain or cardiac arrhythmia 3. Excellent exercise tolerance, attained a maximum of 13.5 METs. Maximum VO2 of 47.3 mL/kg/min. 4. Baseline normal blood pressure with normal response to exercise. 5. Dowell treadmill score of 11. Electronically Signed On 07-03-2021 17:13:05 CDT by Anayeli Pineda M.D. [id number]
[2021-06-27 12:41] VITALS: BP 178/61; PULSE 95
== END 2021-06-27 12:01 | disposition home or self-care (01) ==
LOC: CDL 12:03
PROVIDERS: PCP Family Medicine; Visit Provider Internal Medicine Cardiovascular Disease
DX: R07.9 Chest pain, unspecified (principal)
CPT/HCPCS: 93017

== ENCOUNTER → 2022-08-11 15:02 | Outpatient (BNVA) | payer OTHER, SELFPAY | PROVIDERS: PCP Family Medicine; Visit Provider Internal Medicine Cardiovascular Disease | DX: R00.1 Bradycardia, unspecified (principal); I10 Essential (primary) hypertension; I47.20 Ventricular tachycardia, unspecified; E66.3 Overweight; Z68.31 Body mass index [BMI] 31.0-31.9, adult; Z87.891 Personal history of nicotine dependence | CPT/HCPCS: 99214 ==

== ENCOUNTER → 2023-08-10 14:19 | Outpatient (BNVA) | payer OTHER, SELFPAY | PROVIDERS: PCP Family Medicine; Visit Provider Internal Medicine Cardiovascular Disease | DX: R00.1 Bradycardia, unspecified (principal); I10 Essential (primary) hypertension; I47.29 Other ventricular tachycardia; Z87.891 Personal history of nicotine dependence | CPT/HCPCS: 99214 ==

== ENCOUNTER 2023-08-18 06:30 | Outpatient (CLI) | payer OTHER, SELFPAY ==
--- NOTE | 2023-08-18 | US_ITS ---
WS: [id number] THYROID ULTRASOUND HISTORY: EVAL FOR GOITER COMPARISON: None available. Right lobe: 1.8 cm x 2.4 cm x 5.2 cm (w x ap x l). Volume: 11.3 cm3. Normal size and echotexture. No significant are dominant nodules are present. Left lobe: 1.7 cm x 1.7 cm x 4.8 cm (w x ap x l). Volume: 7.3 cm3. Normal size and echotexture. No significant or dominant nodules are present. Isthmus: 0.6 cm. IMPRESSION: Mildly enlarged thyroid with no increased vascularity. No nodules to suggest multinodular goiter.
== END 2023-08-18 06:31 | disposition home or self-care (01) ==
LOC: RAD 06:31
PROVIDERS: PCP Family Medicine; Visit Provider Nurse Practitioner
DX: E04.9 Nontoxic goiter, unspecified (principal)
CPT/HCPCS: 76536

== ENCOUNTER → 2024-08-08 14:48 | Outpatient (BNVA) | payer OTHER, SELFPAY | PROVIDERS: PCP Family Medicine; Visit Provider Internal Medicine Cardiovascular Disease | DX: I49.8 Other specified cardiac arrhythmias (principal); R07.9 Chest pain, unspecified; I45.19 Other right bundle-branch block; R00.1 Bradycardia, unspecified; I47.20 Ventricular tachycardia, unspecified; Z87.891 Personal history of nicotine dependence | CPT/HCPCS: 93005; 99214 ==

== ENCOUNTER → 2024-09-13 07:57 | Outpatient (BNVA) | payer OTHER, SELFPAY | PROVIDERS: PCP Family Medicine; Visit Provider Nurse Practitioner Family | DX: L70.0 Acne vulgaris (principal); D22.5 Melanocytic nevi of trunk; D22.39 Melanocytic nevi of other parts of face; Z12.83 Encounter for screening for malignant neoplasm of skin; L91.8 Other hypertrophic disorders of the skin | CPT/HCPCS: 17110; 99204 ==

== ENCOUNTER → 2025-08-29 09:55 | Outpatient (BNVA) | payer OTHER, SELFPAY | PROVIDERS: PCP Family Medicine; Visit Provider Internal Medicine Cardiovascular Disease | DX: R00.1 Bradycardia, unspecified (principal); R07.9 Chest pain, unspecified; I47.29 Other ventricular tachycardia; I10 Essential (primary) hypertension | CPT/HCPCS: 99213 ==